=== PATIENT | female | born 1975 | race Caucasian/White ===

== ENCOUNTER → 2018-06-29 09:43 | Outpatient (CLI) | payer BC, SELFPAY ==
--- NOTE | 2018-06-29 09:53 | RAD_ITS ---
HISTORY: inflammatory spondylopathy COMPARISON: 01/03/2004 FINDINGS: XR Pelvis 1 view No fracture or acute disease. The right and left femoral acetabular joints are preserved. No bony erosions or significant arthritis. Transitional vertebra of the lumbosacral junction. The L5 transverse process on the right articulates with the right hemisacrum. Degenerative arthritis with mild narrowing and marginal sclerosis of the left SI joint, inferiorly. The right SI joint appears preserved. Surgical clips within the right hemipelvis. RAD/Pelvis 1 or 2 Views IMPRESSION: 1. 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 2. Normal bilateral hips. 3. Transitional vertebra of the lumbosacral junction. at 0236 Reported and signed by: Nitin Garcia MD Electronically Signed: Nitin Garcia, at 2:34 EST Tel , Service support ,
[2018-06-29 12:22] LABS: Absolute Lymphocyte Count 3.11 X10^3/ul (0.83-4.51); Absolute Neutrophil Count 4.4 X10^3/uL (2.0-7.7); Basophil# 0.05 X10^3/uL; Basophil% 0.6 % (0-1); Eosinophil# 0.26 X10^3/uL; Hematocrit 40.7 % (37-47); Hemoglobin 13.1 g/dl (12.0-15.0); Lymphocyte # 3.11 X10^3/ul (4.0); Lymphocyte % 35.7 % (19-41); Mean Corp Hgb Conc 32.2 g/gl (32-36); Mean Platelet Vol. 10.4 fl (6.2-12.0); Monocyte# 0.85 X10^3/uL; Monocyte% 9.7 % (0-10); Neutrophil # 4.44 X10^3/uL (2.7-7.7); Neutrophil % 50.9 % (47-70); Platelet Count 324 K/mm3 (150-450); RBC Distribution Width CV 13.7 % (11.6-14.6); RBC Distribution Width SD 45.8 fl (35.1-43.9); Red Blood Count 4.52 M/mm3 (4.2-5.4); White Blood Count 8.7 K/mm3 (4.4-11.0)
[2018-06-29 12:42] LABS: POSITIVE COUNT NO; POSITIVE DIFFERENTIAL NO; POSITIVE MORPHOLOGY NO
[2018-06-29 12:53] LABS: Erythrocyte Sedimentation Rate 7 mm/hr (0-20)
[2018-06-29 13:11] LABS: ALB/GLOB Ratio 1.2 RATIO (0.9-2.4); AST(SGOT) 18 U/L (15-37); Alanine Aminotransfer ALT/SGPT 32 U/L (13-56); Albumin, Serum 3.8 g/dL (3.2-5.0); Alkaline Phosphatase 114 U/L (45-117); Anion Gap 9 (5-15); BUN 14 mg/dL (7-18); BUN/Creat Ratio 24.8 RATIO (10-20); CRP 7.04 mg/L (0.0-3.0); Chloride 108 mmol/L (98-107); Creatinine, Serum 0.56 mg/dL (0.55-1.02); EST Glomerular Filtration Rate 124 mL/min (>60); Est Glom Filt Rate - Afr Amer 150 mL/min (>60); Globulin 3.3 g/dL (2.2-4.2); Glucose 85 mg/dL (74-106); Potassium 3.7 mmol/L (3.5-5.1); Protein, Total 7.1 g/dL (6.4-8.2); Rheumatoid Factor < 10.0 IU/mL (<15); Sodium Level 143 mmol/L (136-145)
[2018-07-01 09:44] LABS: ANTINUCLEAR ANTIBODIES DIRECT Negative (Negative)
[2018-07-05 14:45] LABS: CCP IgG Antibodies 5 units (0-19); HEPATITIS B SURFACE AG Negative (Negative); HLA B27 Negative (.); Hep B Surface Antibodies Reactive (.); Hep C Antibodies 0.2 s/co ratio (0.0-0.9)
--- OUTSIDE RECORDS SUMMARY | 2018-08-11 00:05 | XMS RPT_ITS ---
:1975 Author Organization OHIP Care Team Providers Name Role Phone Latasha Aguero Attending Unavailable Latasha Aguero Referring Unavailable Antonella Atkins GLUER-C Primary Care Unavailable SHAYNA PHAM Attending Unavailable YULIANA PHAM II Attending Unavailable DARINEL ATKINSA Admitting Unavailable ANTONELLA ATKINS Attending Unavailable MILLY, ANTONELLA Primary Care Unavailable MILLY ANTONELLA Consulting Unavailable PROVIDER, UNKNOWN Consulting Unavailable MILLY, ANTONELLA Admitting Unavailable ANTONELLA ATKINS Attending Unavailable MILLY, ANTONELLA Primary Care Unavailable DARINEL ATKINSA Consulting Unavailable PROVIDER, UNKNOWN Consulting Unavailable MILLY, ANTONELLA Admitting Unavailable DARINEL ATKINSA Attending Unavailable MILLY, ANTONELLA Primary Care Unavailable MILLY, ANTONELLA Consulting Unavailable PROVIDER, UNKNOWN Consulting Unavailable JAGRUTI CERON MD Admitting Unavailable JAGRUTI CERON MD Attending Unavailable JAGRUTI CERON MD Primary Care Unavailable ANTONELLA ATKINS Consulting Unavailable PROVIDER, UNKNOWN Consulting Unavailable PROBLEMS PROBLEMS DATE TYPE CONDITION / CODE ATTENDING STATUS SOURCE 06/29/2018 Unknown M46.90 - Latasha Aguero Active Sharon Unspecified [facility] spondylopathy, Repository site unspecified / M46.90(ICD-10) 06/29/2018 Unknown M79.7 - Latasha Aguero Active Jeanette Fibromyalgia / [facility] M79.7(ICD-10) Hospital Repository 04/30/2018 Principle Gastro-esophageal MILLY, ANTONELLA Active [facility] reflux disease [facility] esophagitis / Repository K219(ICD-10) 03/23/2018 Principle Encounter for MILLY, ANTONELLA Active [facility] Diagnosis screening for [facility] endocrine disorder Repository / Z1329(ICD-10) 03/23/2018 Secondary Encounter for MILLY, ANTONELLA Active [facility] Diagnosis screening for [facility] diseases of the [facility] blood and Repository blood-forming organs and certain disorders involving the immune mechanism / Z130(ICD-10) 03/23/2018 Secondary Obesity, MILLY, ANTONELLA Active [facility] [place] Diagnosis unspecified / [facility] E669(ICD-10) Hospital Repository PROCEDURES PROCEDURES No Procedure Records FoundRESULTS RESULTS PELVIS 1 OR 2 VIEWS Observed: 06/29/2018 Status: F Source: [place] 9:53 AM [facility] REPOSITORY [facility] Imaging Services [address] [place] [address] Pelvis 1 or 2 Views MR#: [id number] Acct: [id number] Name: TIGRE EDGAR Rep #: [id number] : 1975 F 43 From: Nitin Garcia MD PCP: NOLAN Scruggs Status: REG CLI Study: Pelvis 1 or 2 Views Date of Exam: 06/29/18 Exam# [id number] Ordering Dr: Latasha Aguero MD HISTORY: inflammatory spondylopathy COMPARISON: 01/03/2004 FINDINGS: XR Pelvis 1 view No fracture or acute disease. The right and left femoral acetabular joints are preserved. No bony erosions or significant arthritis. Transitional vertebra of the lumbosacral junction. The L5 transverse process on the right articulates with the right hemisacrum. Degenerative arthritis with mild narrowing and marginal sclerosis of the left SI joint, inferiorly. The right SI joint appears preserved. Surgical clips within the right hemipelvis. RAD/Pelvis 1 or 2 Views IMPRESSION: 1. 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 2. Normal bilateral hips. 3. Transitional vertebra of the lumbosacral junction. at 0236 Reported and signed by: Nitin Garcia MD Electronically Signed: Nitin Garcia, at 2:34 EST Tel , Service support , CC: NOLAN Atkins; Latasha Aguero MD Claim Service Representative: Signed CBC W/DIFF, AUTOMATED Collected: 06/29/2018 Status: F Source: [place] 9:52 AM [facility] REPOSITORY TYPE CODE TESTS RESULT OUT OF RANGE REFERENCE UNITS LAB L100.1000 4.4-11.0 K/mm3 Normal WBC 8.7 LAB L100.1200 4.2-5.4 M/mm3 Normal RBC 4.52 LAB L100.1300 12.0-15.0 g/dl Normal HGB 13.1 LAB L100.1400 37-47 % Normal HCT 40.7 LAB L100.1500 81-99 fL Normal MCV 90.0 LAB L100.1600 27.0-32.0 pg Normal MCH 29.0 LAB L100.1700 32-36 g/gl Normal MCHC 32.2 LAB L100.1810 11.6-14.6 % Normal RDW CV 13.7 LAB L100.1820 35.1-43.9 fl High RDW SD 45.8 LAB L100.1900 150-450 K/mm3 Normal PLT 324 LAB L100.2000 6.2-12.0 fl Normal MPV 10.4 LAB L100.2100 47-70 % Normal NEUT% 50.9 LAB L100.2200 19-41 % Normal LY% 35.7 LAB L100.2300 0-10 % Normal MONO% 9.7 LAB L100.2400 0-5 % Normal EO% 3.0 LAB L100.2500 0-1 % Normal BASO% 0.6 LAB L100.2550 0.0-0.9 % Normal IM GRAN % 0.100 Result Comment: IG% - Immature Granulocytes (promyelocytes, myelocytes and metamyelocytes) > 1% indicates that a LEFT SHIFT is Present. LAB L100.2620 2.0-7.7 X10 3/uL Normal Absolute Neut 4.4 LAB L100.2720 0.83-4.51 X10 3/ul Normal Absolute Lymph 3.11 Performed By: #### L100.0100, L101.9900 #### [facility] [address] [place], [place], [address] ERYTHROCYTE SED RATE Collected: 06/29/2018 Status: F Source: [place] 9:52 AM [facility] REPOSITORY TYPE CODE TESTS RESULT OUT OF RANGE REFERENCE UNITS LAB L102.0000 0-20 mm/hr Normal SED RATE 7 Performed By: #### L100.0100, L101.9900 #### [facility] [address] [place], [place], [address] COMPREHENSIVE METABOLIC Collected: 06/29/2018 Status: F Source: [facility] 9:52 AM [facility] REPOSITORY TYPE CODE TESTS RESULT OUT OF RANGE REFERENCE UNITS LAB L501.0100 74-106 mg/dL Normal GLU 85 Result Comment: Please note revised GLUCOSE reference range effective 2017. LAB L501.1000 7-18 mg/dL Normal BUN 14 LAB L501.1100 0.55-1.02 mg/dL Normal CREAT,SERUM 0.56 Result Comment: The validity of the calculated GFR AND GFRAA in patients over 70 years has not been determined. Clinical correlation is essential. LAB L501.1110 >60 mL/min Normal EST GFR 124 Result Comment: Non- GFR Calc LAB L501.1115 >60 mL/min Normal EST GFR - AA 150 Result Comment: GFR Calc LAB L501.1300 10-20 RATIO High BUN/CRE 24.8 LAB L501.1500 6.4-8.2 g/dL T Normal PROT 7.1 LAB L501.1800 3.2-5.0 g/dL Normal ALB 3.8 LAB L501.1950 2.2-4.2 g/dL Normal GLOB 3.3 LAB L501.2000 0.9-2.4 RATIO Normal A/G 1.2 LAB L501.2200 8.5-10.1 mg/dL CA Normal 9.0 LAB L501.4100 15-37 U/L Normal AST 18 LAB L501.4305 45-117 U/L Normal ALK P 114 LAB L501.4405 13-56 U/L Normal ALT 32 LAB L501.4600 0.20-1.00 mg/dL T Normal BILI 0.20 LAB L501.5300 136-145 mmol/L NA Normal 143 LAB L501.5600 3.5-5.1 mmol/L K Normal 3.7 LAB L501.5900 98-107 mmol/L High CL 108 LAB L501.6100 21.0-32.0 mmol/L Normal CO2 26.0 LAB L501.6200 5-15 Normal GAP 9 Performed By: #### L500.4050, L501.6710, L505.7010 #### [facility] [address] [facility] [place], [place], [id number] CRP Collected: 06/29/2018 Status: F Source: [place] 9:52 AM [facility] REPOSITORY TYPE CODE TESTS RESULT OUT OF RANGE REFERENCE UNITS LAB L501.6710 0.0-3.0 mg/L High 7.04 C-REACTIVE PROT Result Comment: C-Reactive Protein (CRP) provides useful information for the diagnosis, therapy and monitoring of inflammatory processes and associated diseases. For the evaluation of Relative Risk for Cardiovascular Disease, a High Sensitivity CRP (HSCRP) should be ordered. Performed By: #### L500.4050, L501.6710, L505.7010 #### [facility] [address] [facility] [place], [place], [id number] RHEUMATOID FACTOR Collected: 06/29/2018 Status: F Source: [place] 9:52 AM [facility] REPOSITORY TYPE CODE TESTS RESULT OUT OF RANGE REFERENCE UNITS LAB L505.7010 <15 IU/mL Normal RHEUMATOID FAC < 10.0 Performed By: #### L500.4050, L501.6710, L505.7010 #### [facility] [address] [facility] [place], [place], [id number] ANTINUCLEAR ANTIBODIES Collected: 06/29/2018 Status: F Source: [place] DIRECT 9:52 AM [facility] REPOSITORY TYPE CODE TESTS RESULT OUT OF RANGE REFERENCE UNITS LAB L3100.5475 Negative Normal Negative JUAN JOSE-DIRECT Result Comment: Performed at: - [facility] [id number] [place], [place] [id number] Oxygen Equipment Preparer: Vinod Palmer PhD, Phone: [phone] Performed By: #### L3100.5475 #### [facility] (refer to report for specific site) refer to report for address and phone number HEPATITIS B SURFACE Collected: 06/29/2018 Status: F Source: [facility] [facility] 9:52 AM [facility] REPOSITORY TYPE CODE TESTS RESULT OUT OF RANGE REFERENCE UNITS LAB L3100.0400 Negative Normal HB Negative SURF AG Result Comment: Performed at: - [facility] [id number] Oxygen Equipment Preparer: Vinod Palmer PhD, Phone: [phone] Performed at: [address] [place] [id number] Oxygen Equipment Preparer: Nacho Roa PhD, Phone: [phone] Performed at: [facility] [id number] Oxygen Equipment Preparer: Charlette Agosto MD, Phone: [phone] Performed By: #### L3100.0390, L3100.0528, L3100.0625, L3410.1400, L4600.0100 #### [facility] (refer to report for specific site) refer to report for address and phone number HEP B SURFACE Collected: 06/29/2018 Status: F Source: [place] ANTIBODIES 9:52 AM [facility] REPOSITORY TYPE CODE TESTS RESULT OUT OF RANGE REFERENCE UNITS LAB L3100.0528 . Normal Hep B Reactive Cecy AB Result Comment: Non Reactive: Inconsistent with immunity, less than 10 mIU/mL Reactive: Consistent with immunity, greater than 9.9 mIU/mL Performed By: #### L3100.0390, L3100.0528, L3100.0625, L3410.1400, L4600.0100 #### [facility] (refer to report for specific site) refer to report for address and phone number HEPATITIS C ANTIBODIES Collected: 06/29/2018 Status: F Source: [place] 9:52 AM [facility] REPOSITORY TYPE CODE TESTS RESULT OUT OF RANGE REFERENCE UNITS LAB L3100.0650 0.0-0.9 s/co ratio Normal HEP C AB 0.2 Result Comment: Negative: < 0.8 Indeterminate: 0.8 - 0.9 Positive: > 0.9 The CDC recommends that a positive HCV antibody result be followed up with a HCV Nucleic Acid Amplification test (596052). Performed By: #### L3100.0390, L3100.0528, L3100.0625, L3410.1400, L4600.0100 #### [facility] (refer to report for specific site) refer to report for address and phone number HLA B27 Collected: 06/29/2018 Status: F Source: [place] 9:52 AM [facility] REPOSITORY TYPE CODE TESTS RESULT OUT OF RANGE REFERENCE UNITS LAB L3410.1500 . Normal HLA Negative B27 Result Comment: HLA-B*27 Negative B27 allele interpretation for all loci based on IMGT/HLA database version 3.31.0 This test was developed and its performance characteristics determined by [facility]. It has not been cleared or approved by the Food and Drug Administration. [facility] CLIA ID Number [id number] This test was performed using PCR (Polymerase Chain Reaction)/SSOP (Sequence Specific Oligonucleotide Probes) technique. SBT (Sequence Based Typing) and/or SSP (Sequence Specific Primers) may be used as supplemental methods when necessary. Please contact [facility] Customer Service at if you have any questions. Director of [facility] Laboratory Dr Nacho Roa, PhD Performed By: #### L3100.0390, L3100.0528, L3100.0625, L3410.1400, L4600.0100 #### [facility] (refer to report for specific site) refer to report for address and phone number CCP IGG ANTIBODIES Collected: 06/29/2018 Status: F Source: [place] 9:52 AM [facility] REPOSITORY TYPE CODE TESTS RESULT OUT OF RANGE REFERENCE UNITS LAB L4600.0100 0-19 units Normal ANTI-CCP 5 [id number] Result Comment: Negative <20 Weak positive 20 - 39 Moderate positive 40 - 59 Strong positive >59 Performed By: #### L3100.0390, L3100.0528, L3100.0625, L3410.1400, L4600.0100 #### [facility] (refer to report for specific site) refer to report for address and phone number LT MAMM CLIP PLACEMENT Observed: 05/27/2018 Status: F Source: [facility] [place] 1:[address] [address] Patient: TIGRE EDGAR Phone#: : 1975 Age: 43 Gender: F Pt. Type: Out Account: [id number] Location: 062 Ordering: JAGRUTI CERON Exam Date: 05/27/2018/14:01 Family Phys: ANTONELLA ATKINS Charge Code: [id number] Physician: Denton Order #: [id number] DLP Dose#: PROCEDURE: LEFT MAMMOGRAM CLIP PLACEMENT COMPARISON: [facility], , BIL DIAGNOSTIC, 04/30/2018, 10:09. INDICATIONS: Clip placement FINDINGS: LEFT BREAST: A metallic marker is present in the superolateral breast in the targeted location. IMPRESSION: Post procedure mammogram for biopsy marker placement. PLEASE NOTE: A NORMAL MAMMOGRAM DOES NOT EXCLUDE THE POSSIBILITY OF BREAST CANCER. A CLINICALLY SUSPICIOUS PALPABLE LUMP SHOULD BE BIOPSIED. THIS FACILITY UTILIZES A REMINDER SYSTEM TO ENSURE THAT ALL PATIENTS RECEIVE REMINDER LETTERS FOR APPOINTMENTS. THIS INCLUDES REMINDERS FOR ROUTINE MAMMOGRAMS, DIAGNOSITC MAMMOGRAMS, OR OTHER BREAST IMAGING INTERVENTIONS WHEN APPROPRIATE. THIS PATIENT WILL BE PLACED IN THE APPROPRIATE REMINDER SYSTEM. Dictated by: Jagruti Ceron MD on 05/27/2018 at 15:48 Approved by: Jagruti Ceron MD on 05/27/2018 at 15:48 US CORE BX BREAST Observed: 05/27/2018 Status: F Source: [facility] LEFT 1ST LESION 1:[address] [address] Patient: TIGRE EDGAR Phone#: : 1975 Age: 43 Gender: F Pt. Type: Out Account: [id number] Location: 062 Ordering: CARI NEWTON Exam Date: 05/27/2018/12:51 Family Phys: ANTONELLA ATKINS Charge Code: [id number] Physician: Denton Order #: [id number] DLP Dose#: PROCEDURE: PERCUTANEOUS LT BREAST ULTRASOUND GUIDED BIOPSY COMPARISON: None. INDICATIONS: Left Breast Mass DESCRIPTION: After obtaining informed consent, an ultrasound-guided biopsy was performed in the usual sterile manner. FINDINGS: SPECIMEN #, LOCATION: Lesion in the 1 o'clock position measuring 1.6 x 1.7 x 0.6 cm. 3 passes were performed. BIOPSY NEEDLE: 12 gauge Achieve core biopsy needle. MARKERS(S) PLACED: A single metallic marker was placed in the appropriate targeted location. MEDICATION: Buffered 2% lidocaine with epinephrine administered locally. 2% lidocaine was administered superficially. COMPLICATIONS: None. PATHOLOGY LAB: Results pending. CONCLUSION: Uneventful ultrasound-guided breast biopsy. The patient was instructed to obtain follow up care and biopsy results from the referring physician. An addendum to this report will be provided with radiological-pathological correlation after the pathology results are available. Dictated by: Jagruti Ceron MD on 05/27/2018 at 15:47 Approved by: Jagruti Ceron MD on 05/27/2018 at 15:47 FINAL SURGICAL Observed: 05/27/2018 Status: F Source: [facility] PATHOLOGY REPORT 7:31 AM [facility] REPOSITORY . Pathology Reports Accession: Collected Date/Time: Received Date/Time: Pathologist: [id number] 05/27/2018 07:31 EDT 05/28/2018 07:31 EDT MD SPENCER RESENDIZ Final Surgical Pathology Report DIAGNOSIS: BREAST, LEFT @ 1 O'CLOCK, ULTRASOUND CORE BIOPSY: - FIBROADENOMA. COMMENT: [facility] #[id number] CLINICAL INFORMATION: MASS OF LEFT BREAST ON MAMMOGRAM SPECIMEN: A BRST, BX- LEFT BREAST @ 1:00 GROSS DESCRIPTION: Received in formalin labeled left breast 1:00 are 3 yellow- white cores of soft tissue, ranging from 1.5-2.0. TS-1 Time removed from patient: 1331 Time placed in formalin: 1332 Cold ischemic time: is within the parameters of ASCO/CAP guidelines Total fixation time: is within the parameters of ASCO/CAP guidelines (less than 6 hours or greater than 72 hours) Fixative: 10% neutral buffered formalin Dictated by Paris ROSE (ASCP) MICROSCOPIC DESCRIPTION: Slides reviewed. Electronically Signed by Pathology Report verified by [facility] Electronically signed by SPENCER RESENDIZ MD Sign out Date: 05/31/2018 13:36 Performing Lab: [facility], [address] [place] [address] [place] Performed By: #### SPFR #### [place] [address] US BREAST LT Observed: 04/30/2018 Status: F Source: [facility] UNILATERAL COMPLETE 10:44 AM [place] [address] Patient: EDGAR TIGRE Connie Phone#: : 1975 Age: 42 Gender: F Pt. Type: Out Account: [id number] Location: Ordering: ANTONELLA ATKINS Exam Date: 04/30/2018/10:19 Family Phys: Charge Code: [id number] Physician: Denton Order #: [id number] DLP Dose#: PROCEDURE: ULTRASOUND BREAST LT COMPARISON: None. INDICATIONS: Abnormal mammogram TECHNIQUE: Breast ultrasound was performed, with evaluation focusing on all four quadrants. FINDINGS: DIAGNOSTIC CATEGORY 4-- SUSPICIOUS FINDINb-INTERMEDIATE SUSPICION FOR MALIGNANCY LEFT BREAST: Solid suspicious-appearing lesion, hypoechoic echotexture, mid-breast depth, 1 o'clock position (upper-outer), and 6 x 14 x 17 mm size. The finding correlates with the mammogram finding. This report was communicated by telephone to Antonella Atkins at 10:50 AM, 04/22/2018. RECOMMENDATIONS: ULTRASOUND-GUIDED CORE BIOPSY: LEFT BREAST. PLEASE NOTE: A NORMAL MAMMOGRAM DOES NOT EXCLUDE THE POSSIBILITY OF BREAST CANCER. A CLINICALLY SUSPICIOUS PALPABLE LUMP SHOULD BE BIOPSIED. Dictated by: Maite Dumas MD on 04/30/2018 at 11:10 Approved by: Maite Dumas MD on 04/30/2018 at 11:10 MAMM DIGITAL BILAT Observed: 04/30/2018 Status: F Source: [facility] DIAGNOSTIC 10:[address] [address] Patient: TIGRE EDGAR Phone#: : 1975 Age: 42 Gender: F Pt. Type: Out Account: [id number] Location: Ordering: ANTONELLA MILLY Exam Date: 04/30/2018/10:09 Family Phys: Charge Code: [id number] Physician: Denton Order #: [id number] DLP Dose#: PROCEDURE: MAMM BILAT DIGITAL DIAGNOSTIC WITH CAD COMPARISON: None. INDICATIONS: Breast soreness BREAST COMPOSITION: Scattered fibroglandular densities (25-50% glandular). FINDINGS: DIAGNOSTIC CATEGORY 0--INCOMPLETE ASSESSMENT: NEED ADDITIONAL IMAGING EVALUATION. RIGHT BREAST: No significant suspicious finding. LEFT BREAST: MASS (finding with convex borders visible on two orthogonal views), characterized by obscured indeterminate morphology, mid-breast depth, 1 o'clock position (upper-outer), and 14 x 18 x 14 mm size. Additional spot compression views in craniocaudal and oblique projections were obtained. This focus is persistent. The superior and posterior margins are irregular. Further evaluation by ultrasound will be performed. RECOMMENDATIONS: ULTRASOUND: LEFT BREAST. We will call the patient back for an ultrasound and provide an additional report. PLEASE NOTE: A NORMAL MAMMOGRAM DOES NOT EXCLUDE THE POSSIBILITY OF BREAST CANCER. A CLINICALLY SUSPICIOUS PALPABLE LUMP SHOULD BE BIOPSIED. THIS FACILITY UTILIZES A REMINDER SYSTEM TO ENSURE THAT ALL PATIENTS RECEIVE REMINDER LETTERS FOR APPOINTMENTS. THIS INCLUDES REMINDERS FOR ROUTINE MAMMOGRAMS, DIAGNOSITC MAMMOGRAMS, OR OTHER BREAST IMAGING INTERVENTIONS WHEN APPROPRIATE. THIS PATIENT WILL BE PLACED IN THE APPROPRIATE REMINDER SYSTEM. Dictated by: Maite Dumas MD on 04/30/2018 at 10:32 Continued Report - Page 2 of 2 Patient: TIGRE EDGAR Phone#: : 1975 Age: 42 Gender: F Pt. Type: Out Account: [id number] Location: Ordering: ANTONELLA MILLY Exam Date: 04/30/2018/10:09 Family Phys: Charge Code: [id number] Physician: Denton Order #: [id number] DLP Dose#: Approved by: Maite Dumas MD on 04/30/2018 at 10:32 H PYLORI UREA BREATH Collected: 04/30/2018 Status: F Source: [facility] [place] TEST [QUEST] 9:55 AM [facility] REPOSITORY TYPE CODE TESTS RESULT OUT OF REFERENCE UNITS RANGE LAB H PYLORI UREA BREATH TEST [Quest](LOINC ) H PYLORI UREA BREATH TEST [Quest] Result Comment: _H Pylori Urea Breath Test (UBIT)_ HELICOBACTER PYLORI, UREA BREATH TEST Reported: 05/03/2018 18:36 Status=F TEST RESULT FLAG RANGE UNITS H. PYLORI,UREA BREATH NOT DETECTED NOT DETECTED 05/03/18.1848.rfl.COMPLETE.AMRR .87768-2 TEST Antimicrobials, proton pump inhibitors, and bismuth preparations are known to suppress H. pylori, and ingestion of these prior to H. pylori diagnostic testing may lead to false negative results. If clinically indicated, the test may be repeated on a new specimen obtained two weeks after discontinuing treatment. However, a positive result is still clinically valid. 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 Myopia, right - ICD9: 367.1, ICD10: H52.11 (primary diagnosis) 2. Regular astigmatism of both eyes - ICD9: 367.21, ICD10: H52.223 3. Presbyopia - ICD9: 367.4, ICD10: H52.4 Return to use of multifocal as single vision creates eye strain. DACP contact uncomfortable and fit poorly. Refit into [employer] torics and will order My Day torics to try. Recheck in 2 weeks. I have confirmed and edited as necessary the relevant ophthalmic history, review of systems, surgical history, and ophthalmological examination findings as obtained by the ophthalmic technical staff. I have seen and examined Tigre Edgar. I have discussed the examination findings, diagnosis, and treatment options with the patient and/or the patient's family. I have also reviewed and agree with the assessment and plan as stated above and agree with all its relevant components. I gave the patient the opportunity to ask questions about the findings, diagnosis, and treatment options. Yuliana Pham, II, OD CBC Collected: 03/23/2018 Status: F Source: [place] [place] 10:47 AM [facility] REPOSITORY TYPE CODE TESTS RESULT OUT OF RANGE REFERENCE UNITS LAB CBC(LOINC) CBC Result Comment: CBC-COMPLETE BLOOD COUNT LAB WBC(LOINC) 4.5 - 10.8 x 10EE3/UL WBC High 12.0 LAB RBC(LOINC) 4.10 - x 10EE6/UL 5.30 RBC 4.79 LAB HEMOGLOBIN(LOINC 12.0 - g/dl ) 16.0 HEMOGLOBIN 14.3 LAB HEMATOCRIT(LOINC 34.0 - % ) 46.0 HEMATOCRIT 42.3 LAB MCV(LOINC) 80 - 99 fl MCV 88 LAB MCH(LOINC) 27 - 33 pg MCH 30 LAB MCHC(LOINC) 32 - 36 X10 3 MCHC 34 LAB RDW/CV(LOINC) 12.0 - % 15.6 RDW/CV 14.2 LAB PLATELET(LOINC) 150 - 450 x10EE3/UL PLATELET 301 LAB MPV(LOINC) 6.6 - 10.5 fl MPV 9.1 Result Comment: AUTOMATED DIFFERENTIAL LAB NEUT %(LOINC) 46.0 - 76.0 % NEUT % 64.4 LAB LYMPH %(LOINC) 20.0 - 45.0 % LYMPH % 24.9 LAB MONOS %(LOINC) 0.0 - 10.0 % MONOS % 7.3 LAB EO %(LOINC) 0.0 - 7.0 % EO % 1.7 LAB BASO %(LOINC) 0.0 - 2.0 % BASO % 1.7 LAB Lymph #(LOINC) 0.80 - 2.80 x10EE3/U L Lymph # High 3.00 LAB Neut #(LOINC) 1.50 - 7.10 x10EE3/U L Neut # High 7.70 LAB [place] #(LOINC) 0.20 - 1.00 x10EE3/U L [place] # 0.90 LAB EO #(LOINC) 0.00 - 0.50 x10EE3/U L EO # 0.20 LAB Baso #(LOINC) 0.00 - 0.10 x10EE3/U L Baso # High 0.20 LAB MANUAL DIFF(LOINC) MANUAL DIFF N/A LAB MORPHOLOGY(LOINC ) MORPHOLOGY N/A Result Comment: {CD] Performed By: #### [id number] #### [place] [address] T4-FREE (FREE Collected: 03/23/2018 Status: F Source: [facility] THYROXINE) 10:47 AM [facility] REPOSITORY TYPE CODE TESTS RESULT OUT OF RANGE REFERENCE UNITS LAB T4 0.61 - 1.12 ng/dl FREE(LOINC) T4 FREE 0.93 Result Comment: *SPECIMENS FROM PATIENTS WHO ARE UNDERGOING BIOTIN THERAPY AND/OR INGESTING BIOTIN SUPPLEMENTS MAY HAVE FALSE HIGH RESULTS. Performed By: #### [id number] #### [place] [id number] CMP WITH EGFR Collected: 03/23/2018 Status: F Source: [facility] 10:47 AM [facility] REPOSITORY TYPE CODE TESTS RESULT OUT OF RANGE REFERENCE UNITS LAB CMP with eGFR(LOINC) CMP with eGFR Result Comment: COMPREHENSIVE METABOLIC PANEL LAB SODIUM(LOINC) 136 - 145 mmol/l SODIUM 139 LAB POTASSIUM(LOINC) 3.5 - 5.1 mmol/L POTASSIUM 4.2 LAB CHLORIDE(LOINC) 98 - 107 mmol/L CHLORIDE 107 LAB CO2(LOINC) 21.0 - mmol/L 31.0 CO2 25.9 LAB GLUCOSE(LOINC) 74 - 106 mg/dl GLUCOSE 89 LAB BUN(LOINC) 6 - 20 mg/dl BUN 10 LAB CREATININE(LOINC) 0.6 - 1.2 mg/dl CREATININE 0.6 LAB AST/SGOT(LOINC) 13 - 39 U/L AST/SGOT 14 LAB ALK PHOS(LOINC) 38 - 126 U/L ALK PHOS 67 LAB CALCIUM(LOINC) 8.6 - mg/dl 10.2 CALCIUM 9.5 LAB TOTAL 6.4 - 8.3 g/dl PROTEIN(LOINC) TOTAL PROTEIN 6.9 LAB ALBUMIN(LOINC) 3.4 - 4.8 g/dL ALBUMIN 4.3 LAB GLOBULIN(LOINC) 1.5 - 3.8 G/DL GLOBULIN 2.6 LAB A/G RATIO(LOINC) 0.9 - 1.6 A/G High RATIO 1.7 LAB TOTAL BILI(LOINC) 0.0 - 1.5 mg/dl TOTAL BILI 0.3 LAB B/C RATIO(LOINC) 0 - 30 ratio B/C RATIO 17 LAB ALT/SGPT(LOINC) 8 - 35 U/L ALT/SGPT 20 LAB ANION GAP(LOINC) 10 - 20 mmol/L ANION GAP 10 LAB AGE(LOINC) years AGE 42 LAB eGFR(LOINC) 60 - 999 ML/MINUTE eGFR >60 LAB eGFR(AA)(LOINC) 60 - 999 ML/MINUTE eGFR(AA) >60 Result Comment: ACCORDING TO THE NATIONAL KIDNEY DISEASE EDUCATION PROGRAM(NKDE), A NORMAL eGFR IS A VALUE GREATER THAN OR EQUAL TO 60 ML/MIN/1.73 SQ METERS. CHRONIC KIDNEY DISEASE: <60mL/MIN/1.73 SQ METERS KIDNEY FAILURE: <15mL/MIN/1.73 SQ METERS THIS TEST SHOULD ONLY BE USED FOR PATIENTS 18 YEARS OF AGE AND OLDER. 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 Regular astigmatism of both eyes - ICD9: 367.21, ICD10: H52.223 (primary diagnosis) 2. Myopia, right - ICD9: 367.1, ICD10: H52.11 Dispensed trial contact lenses to try for occasional use. Also recommended glasses to use as desired. Use of bifocals will be determined once she gets single vision lenses. 3. Floaters, bilateral - ICD9: 379.24, ICD10: H43.393 Signs and symptoms of a retinal tear/detachment (flashes, floaters or change in peripheral vision) were reviewed with the patients. Patient understands they should return or call our office immediately if any of theses symptoms present. Recommended yearly exams Shayna Pham, OD The documentation recorded by the scribe accurately reflects the service I personally performed and the decisions made by me. I have confirmed and edited as necessary the relevant ophthalmic history, ROS, and the neuro exam findings as obtained by others. I have seen and examined Tigre Edgar. I also have reviewed and agree with the assessment and plan as stated above and agree with all of its relevant components. ALLERGIES ALLERGIES DATE TYPE / CODE NAME / CODE REACTION SEVERITY SOURCE 03/22/2018 DRUG ANIMAL DANDER OTHER: SEE [facility] INGRED[address] [id number](SNOM Repository ED CT) 03/22/2018 DRUG MOLD OTHER: SEE [address] [id number](SNOM Repository ED CT) 03/22/2018 DRUG POLLEN EXTRACTS OTHER: SEE [address] 734958(SNOM Repository ED CT) ENCOUNTERS ENCOUNTERS ADMIT/DISCHARGE ACCOUNT ADMITTING ENCOUNTER LOCATION SOURCE NUMBER CLASS 06/29/2018 [id number] Ambulatory [facility] ing:MTLAB Repository 05/27/2018/05/27/20 [id number] LUDYJAGRUTI ESPINOZA Ambulatory [facility] [place], [place] [address]estrella oom: AMB1 [facility] Repository 04/30/2018/04/30/20 [id number] MILLY, ANTONELLA Ambulatory [facility] 18 [facility] Repository 04/30/2018/04/30/20 [id number] MILLY ANTONELLA Ambulatory [address] Repository 04/26/2018/04/27/20 [id number] Ambulatory [address] Repository 04/13/2018/04/14/20 [id number] Ambulatory [address] Repository 03/23/2018/03/23/20 [id number] MILLY [facility] Ambulatory [address] Repository 03/22/2018/03/23/20 [id number] Ambulatory [address] Repository PAYERS PAYERS ENCOUNTER GUARANTOR PAYER SUBSCRIBER SOURCE 06/29/2018 TIGRE Manning Primary DEMI H Sharon [id number] Insurance:ANTHEMPkavya EDGARDOB: [facility] Number: [id number] [id number] Repository [address]Vvo: [phone]) Date:[id number] [phone] () [address] [place] [address]NG: 06/29/2018 Secondary NOT GIVENUNK Sharon Insurance:SELF PAY [facility] Number: Effective Repository Date:2018-06-29 05/27/2018 TIGRE Primary DEMI Alarcon JAMALDOB: Insurance:ANTHEMPkavya GIMENEZB: [facility] Number: [id number] [facility] [id number] [address] MAIN Repository [address] [place] [address] Date:Plan Name:HARMONY THOMPSON [id number]: [phone]) [place] [phone] () 04/30/2018 TIGRE Primary DEMI Alarcon AMMYB: Insurance:JAIR GIMENEZB: [facility] OUTPATIENTPolicy [id number] [facility] Number: W MAIN Repository [address]17[facility] [id number] JAY, [address], [place] Date:Plan Name:HARMONY [id number]: () 04/30/2018 TIGRE Primary DEMI EDGARB: Insurance:Neli GIMENEZB: [facility] Number: [id number] [facility] [id number] W MAIN Repository [address], [place] Date:Plan Name:HARMONY THOMPSON [id number]: [phone] [place] [phone] 03/23/2018 TIGRE [facility] DEMI Alarcon AMMYB: Insurance:Neli HORTA: [facility] Number: [id number] [facility] [id number] W MAIN Repository [address], [place] Date:Plan Name:HARMONY THOMPSON [id number]: [phone] [place] [phone] ()
== END ==
PROVIDERS: Family Provider Nurse Practitioner Family; PCP Nurse Practitioner Family; Referring Provider Internal Medicine Rheumatology; Visit Provider Internal Medicine Rheumatology
DX: M46.90 Unspecified inflammatory spondylopathy, site unspecified (principal); M79.7 Fibromyalgia
CPT/HCPCS: 36415; 72170; 80053; 81374; 85025; 85652; 86038; 86140; 86200; 86431; 86706; 86803; 87340

== ENCOUNTER → 2018-09-08 08:20 | Outpatient (CLI) | payer BC, SELFPAY ==
[2018-09-08 10:55] LABS: Basophil# 0.08 X10^3/uL; Basophil% 0.8 % (0-1); Eosinophils% 3.1 % (0-5); Hematocrit 41.5 % (37-47); Hemoglobin 13.1 g/dl (12.0-15.0); Mean Corp Hgb Conc 31.6 g/gl (32-36); Mean Corpuscular Hgb 29.3 pg (27.0-32.0); Mean Corpuscular Volume 92.8 fL (81-99); Mean Platelet Vol. 10.9 fl (6.2-12.0); Monocyte# 0.99 X10^3/uL; Monocyte% 10.2 % (0-10); Neutrophil # 5.02 X10^3/uL (2.7-7.7); Neutrophil % 51.6 % (47-70); Platelet Count 327 K/mm3 (150-450); RBC Distribution Width CV 13.7 % (11.6-14.6); RBC Distribution Width SD 45.2 fl (35.1-43.9); Red Blood Count 4.47 M/mm3 (4.2-5.4); White Blood Count 9.7 K/mm3 (4.4-11.0)
[2018-09-08 10:56] LABS: POSITIVE COUNT NO; POSITIVE DIFFERENTIAL NO; POSITIVE MORPHOLOGY NO
[2018-09-08 11:26] LABS: ALB/GLOB Ratio 1.2 RATIO (0.9-2.4); AST(SGOT) 15 U/L (15-37); Alanine Aminotransfer ALT/SGPT 29 U/L (13-56); Albumin, Serum 3.7 g/dL (3.2-5.0); Alkaline Phosphatase 92 U/L (45-117); Anion Gap 9 (5-15); BUN 10 mg/dL (7-18); Calcium,Total 8.8 mg/dL (8.5-10.1); Chloride 110 mmol/L (98-107); Creatinine, Serum 0.62 mg/dL (0.55-1.02); EST Glomerular Filtration Rate 111 mL/min (>60); Est Glom Filt Rate - Afr Amer 134 mL/min (>60); Globulin 3.2 g/dL (2.2-4.2); Glucose 99 mg/dL (74-106); Potassium 3.6 mmol/L (3.5-5.1); Protein, Total 6.9 g/dL (6.4-8.2); Sodium Level 143 mmol/L (136-145)
== END ==
PROVIDERS: Family Provider Nurse Practitioner Family; PCP Nurse Practitioner Family; Referring Provider Internal Medicine Rheumatology; Visit Provider Internal Medicine Rheumatology
DX: M46.90 Unspecified inflammatory spondylopathy, site unspecified (principal); M79.7 Fibromyalgia; K21.9 Gastro-esophageal reflux disease without esophagitis; F41.9 Anxiety disorder, unspecified; F32.89 Other specified depressive episodes
CPT/HCPCS: 36415; 80053; 85025

== ENCOUNTER → 2019-01-07 07:41 | Outpatient (CLI) | payer OTHER, SELFPAY ==
[2019-01-07 06:16] VITALS: BMI 35.4
--- NOTE | 2019-01-07 07:44 | RAD_ITS ---
STUDY: X-RAY - LEFT HAND REASON FOR EXAM: Female, 43 years old. Smashing injury to the distal fingers. TECHNIQUE: 3 view(s) of the hand. COMPARISON: None. FINDINGS: Normal radiocarpal articulation. Normal distal radioulnar joint. Normal visualized carpal bones. Normal carpal articulations Normal carpometacarpal articulation of the thumb. Normal second through fifth carpometacarpal joints. Normal metacarpi. Normal metacarpophalangeal joint of the thumb. Normal interphalangeal joint of the thumb. Normal proximal and distal phalanges of the thumb. Normal metacarpophalangeal joints of the second through fifth fingers. Normal proximal and distal interphalangeal joints of the second through fifth fingers. Normal phalanges of the second through fifth fingers. Soft tissue swelling overlying the fifth digit. RAD/Hand Min 3 Views IMPRESSION: Soft tissue swelling. No fracture is seen. Electronically Signed: Dave Leon, at 8:13 EDT , Service support ,
--- NOTE | 2019-01-07 07:44 | RAD_ITS ---
STUDY: X-RAY - LEFT HAND, ATTENTION FIFTH FINGER REASON FOR EXAM: Female, 43 years old. Pain following injury. TECHNIQUE: 3 view(s) of the finger were obtained. COMPARISON: None. FINDINGS: Normal metacarpal head. Normal metacarpophalangeal joint. Normal proximal phalanx. Normal middle phalanx. Normal distal phalanx. Normal proximal interphalangeal joint. Normal distal interphalangeal joint. Soft tissue swelling. RAD/Finger(s) Min 2 Views IMPRESSION: Soft tissue swelling. Electronically Signed: Dave Leon, at 8:14 EDT , Service support ,
== END ==
PROVIDERS: Family Provider Nurse Practitioner Family; PCP Nurse Practitioner Family; Referring Provider Physician Assistant Surgical; Visit Provider Physician Assistant Surgical
DX: S61.217A Laceration without foreign body of left little finger without damage to nail, initial encounter (principal); S67.197A Crushing injury of left little finger, initial encounter; X58.XXXA Exposure to other specified factors, initial encounter; Y93.9 Activity, unspecified; Y92.9 Unspecified place or not applicable; Y99.9 Unspecified external cause status
CPT/HCPCS: 73130; 73140

== ENCOUNTER 2019-04-04 23:53 | Emergency (ER) | payer BC, SELFPAY ==
[2019-01-25 06:21] VITALS: BMI 35.4
[2019-04-04 23:54] VITALS: BP 141/86; PULSE 71; PULSE 78; RESP 13; RESP 17; TEMP 36.8; O2SAT 100; O2SAT 98; BMI 35.1
--- NOTE | 2019-04-05 00:05 | EKG12_ITS ---
Test Reason : CP Blood Pressure : / mmHG Vent. Rate : 075 BPM Atrial Rate : 075 BPM P-R Int : 140 ms QRS Dur : 090 ms QT Int : 432 ms P-R-T Axes : 053 049 048 degrees QTc Int : 482 ms Sinus rhythm with PVC's Prolonged QT Abnormal ECG Confirmed by PRECIOUS GAMBLE, RANDI ([id number]), editorial manager CARLOS MARSH ([id number]) on 04/06/2019 1:31:37 PM Referred By: TIMBO Confirmed By:RANDI LANG MD
--- NOTE | 2019-04-05 00:05 | RAD_ITS ---
HISTORY:CPChest PainRAD - Chest AND DIZZINESS CPChest PainRAD - Chest AND DIZZINESS EXAM: XR Chest 2 Views: COMPARISON: None FINDINGS: # of images incl. paperwork: 2 LINES/DEVICES: None. LUNGS: Radiographically clear. No consolidation, edema or effusion. No pneumothorax. MEDIASTINUM AND CARDIOVASCULAR STRUCTURES: Cardiac silhouette not enlarged. BONES AND SOFT TISSUES: Unremarkable. RAD/Chest PA and Lateral IMPRESSION: No radiographic evidence of acute cardiopulmonary disease. at 0041 Reported and signed by: Oliva Thomas DO Electronically Signed: Oliva Thomas DO at 0:40 EDT Tel , Service support ,
--- NOTE | 2019-04-05 00:05 | ED.RN ---
CALLED FOR EKG PER RN REQUEST, NO OLD EKGS IN MUSE
--- NOTE | 2019-04-05 00:06 | ED.VIS.GEN ---
History of Present Illness Chief Complaint: Chest Pain Informant: Patient Narrative: Stated she felt lightheaded throughout the day today since the early afternoon. She did go to work. She felt lightheaded at work. She was not doing things specifically strenuous. She stated throughout the day she is been getting some occasional intermittent sharp upper chest pains that lasts for seconds at a time. Sometimes she feels them in her neck. Came in for further evaluation of that. EMS was called to her work for her symptoms. She was given aspirin and one nitroglycerin. She stated she feels well currently. She is not having any current chest pain. She has a history of PVCs per patient. 3 years ago she was admitted to the hospital at [facility] and underwent a stress test which was negative per patient. She stated this was for chest discomfort and PVCs. Patient denies any cardiac risk factors other than smoking. She has smoked for greater than 20 years. Patient denies any shortness of breath. She denies any pulmonary embolism risk factors. She denies any dissection risk factors. Current severity is mild. She does not feel lightheaded currently. It does not appear to be positional per patient. It was not overly hot in her work tonight. - Past Medical History (1) Crushing injury of left little finger, initial encounter Status: Acute (2) Laceration of left little finger w/o foreign body w/o damage to nail Status: Acute Past Medical History - Allergies and Home Meds Allergies/Adverse Reactions: Allergies morphine Allergy (Unknown, Verified 04/04/19 23:58) unknown Primary Care Physician: [facility] Doctor,Out of [NON-STAFF] - Prior records reviewed: Yes Past Medical History: - - See problem list, anxiety, PVCs Surgical History: noncontributory Smoking Status: Current every day smoker Alcohol: None Drugs: None Review of Systems General: Denies: Chills, Fever, Sweats Eyes: Denies: Visual changes - bilaterally, Diplopia ENT: Denies: Rhinorrhea, Sore throat Cardiovascular: Reports: Chest pain. Denies: Palpitations Respiratory: Denies: Dyspnea, Cough, Dyspnea on exertion Gastrointestinal: Denies: Abdominal pain, Nausea, Vomiting, Diarrhea, Melena, Hematochezia Genitourinary: Denies: Dysuria, Hematuria, Frequency Musculoskeletal: Denies: Back pain, Extremity Pain Skin: Denies: Rash, Wounds Neurological: Reports: Weakness. Denies: Headache, Numbness Physical Exam Vital Signs/Narrative: Vital Signs Temp Pulse Resp BP Pulse Ox 04/04/19 23:54 98.3 F 71 13 141/86 H 98 General: Well nourished, Well developed, No Acute Distress Head: Normocephalic, Atraumatic Eyes: Perrl, EOMI ENT: Moist mucous membranes, No rhinorrhea Neck: Supple, Nontender Cardiovascular: Regular rate, Regular rhythm, No murmurs Respiratory: No distress, CTA bilaterally, Chest nontender Abdomen: Soft, Nontender, Nondistended, Normal bowel sounds Back: Nontender, Normal Inspection Extremities: Nontender, No edema Skin: Normal color, No rash Neurological: Alert, Oriented x3, Cranial nerves II-XII grossly intact, Normal Strength, Normal Sensation Psychological: Normal affect, Normal Mood Diagnostic/Tx/Re-eval - Medical Decision Making AG obtained shows sinus rhythm at a rate of 75. Positive PVC x1. No acute STEMI or ischemic findings. IV established. Lab work and chest x-ray obtained. Lab work shows negative troponin. CBC shows no acute abnormalities. BMP shows no major abnormalities. Chest x-ray two-view shows no acute disease read by myself. Patient did not really have any PVCs on the monitor. Occasional once here. She may have had a run of PVCs at work that made her feel lightheaded. Pressure came down to 120/90. She is resting comfortably. Her TOSHA risk score is 0. Her heart score is low (2). To her about mission and stress test. At this time she like to be discharged to follow-up with her family doctor. I a low suspicion for acute coronary syndrome pulmonary embolism or dissection or other emergent cause of her symptoms. She will return if she worsens. ED Disposition - Plan for ED Patient: Disposition: [facility] Hospital or Unit Diagnosis: Lightheadedness, Chest pain at rest Instructions: CHEST PAIN, Uncertain Cause Referrals: [facility] Doctor,Out of [NON-STAFF] - Eddie Abdi DO [NON CLINICAL AFFILIATE] -
[2019-04-05 00:11] VITALS: O2SAT 96
[2019-04-05 00:19] LABS: Absolute Lymphocyte Count 4.84 X10^3/uL (0.83-4.51); Absolute Neutrophil Count 6.5 X10^3/uL (2.0-7.7); Basophil% 0.8 % (0-1); Eosinophils% 2.4 % (0-5); Hematocrit 38.9 % (37-47); Hemoglobin 12.8 g/dL (12.0-15.0); Lymphocyte # 4.84 X10^3/ul (4.0); Lymphocyte % 38.3 % (19-41); Mean Corp Hgb Conc 32.9 g/dL (32-36); Mean Corpuscular Hgb 30.1 pg (27.0-32.0); Mean Corpuscular Volume 91.5 fL (81-99); Mean Platelet Vol. 10.3 fl (6.2-12.0); Monocyte# 0.87 X10^3/uL; Monocyte% 6.9 % (0-10); NRBC Flagged by Analyzer 0 % (0-5); Neutrophil # 6.48 X10^3/uL (2.7-7.7); Neutrophil % 51.3 % (47-70); Platelet Count 282 K/mm3 (150-450); RBC Distribution Width CV 12.9 % (11.6-14.6); RBC Distribution Width SD 43.8 fl (35.1-43.9); Red Blood Count 4.25 M/mm3 (4.2-5.4); White Blood Count 12.6 K/mm3 (4.4-11.0)
[2019-04-05 00:37] LABS: Anion Gap 4 (5-15); BUN 13 mg/dL (7-18); Calcium,Total 8.9 mg/dL (8.5-10.1); Chloride 110 mmol/L (98-107); Creatinine, Serum 0.77 mg/dL (0.55-1.02); EST Glomerular Filtration Rate 87 mL/min (>60); Est Glom Filt Rate - Afr Amer 105 mL/min (>60); Estimated Creatinine Clearance 101.87 ml/min; Glucose 115 mg/dL (74-106); Potassium 3.6 mmol/L (3.5-5.1); Sodium Level 142 mmol/L (136-145)
[2019-04-05 01:06] VITALS: BP 120/93; PULSE 62; RESP 14; O2SAT 100
--- NOTE | 2019-04-05 04:53 | ED.RN ---
OPENED CHART TO [employer] FOR A SIGNED RELEASE OF RECORDS REQUEST
== END 2019-04-05 01:08 | disposition home or self-care (01) ==
PROVIDERS: Emergency Provider Emergency Medicine; Family Provider Nurse Practitioner Family; PCP Nurse Practitioner Family
DX: R42 Dizziness and giddiness (principal); I49.3 Ventricular premature depolarization; R07.9 Chest pain, unspecified; F41.9 Anxiety disorder, unspecified; F17.200 Nicotine dependence, unspecified, uncomplicated; Z79.899 Other long term (current) drug therapy; Z88.5 Allergy status to narcotic agent
CPT/HCPCS: 71046; 80048; 84484; 85025; 93005; 99285; J7030